=== PATIENT | male | born 1965 | race Caucasian/White ===

== ENCOUNTER 2025-03-05 07:43 | Day surgery (SDC) | payer BC, OTHER ==
[2025-03-05] MEDS ORDERED: Midazolam 1 MG/ML 2 ML SDV IV ONE (07:44)
[2025-03-05] MEDS ORDERED: Propofol 200 MG/20 ML SDV IV ONE (07:44)
[2025-03-05] MEDS ORDERED: Lactated Ringers 1,000 ML IV ONE (07:44)
[2025-03-05] MEDS ORDERED: fentaNYL 100 MCG/2 ML SDV IV ONE (07:44)
[2025-03-05] MEDS ORDERED: Sodium Chloride 0.9% 10 ML Syringe FLUSH PRN (07:45)
[2025-03-05] MEDS: Lactated Ringers 1,000 ML IV SCH (08:16)
== END 2025-03-05 10:17 | disposition home or self-care (01) ==
LOC: FB.SDS 07:43
PROVIDERS: ATTEND Surgery
DX: Z12.11 Encounter for screening for malignant neoplasm of colon (principal); D12.6 Benign neoplasm of colon, unspecified; I10 Essential (primary) hypertension; E78.5 Hyperlipidemia, unspecified; G47.33 Obstructive sleep apnea (adult) (pediatric); F17.210 Nicotine dependence, cigarettes, uncomplicated; Z86.0101 Personal history of adenomatous and serrated colon polyps; Z79.899 Other long term (current) drug therapy
CPT/HCPCS: 00811; 45381; 45384; 45385; 88305; A9270; J2250; J2704; J3010; J7120